=== PATIENT | female | born 2000 | race Caucasian/White ===

== ENCOUNTER 2019-01-24 20:05 | Emergency (ER) | payer BC ==
[2019-01-24 20:55] LABS: #Basophils 0.1 thou/uL (0.0-0.2); #Eosinphils 0.5 thou/uL (0.0-0.7); #Lymphocytes 1.4 thou/uL (1.20-3.40); #Monocytes 0.7 thou/uL (0.11-0.59); #Neutrophils 4.7 thou/uL (1.40-6.50); %Basophils 0.8 % (0.0-1.0); %Eosinophils 6.6 % (0.0-10.0); %Lymphocytes 18.9 % (28.0-48.0); %Monocytes 9.2 % (0.0-4.0); %Neutrophils 64.6 % (31.0-61.0); Hemoglobin 14.4 g/dL (12.0-16.0); Mean Corpuscular HGB CONC 33.6 g/dL (32.0-36.0); Mean Corpuscular Hemoglobin 30.8 pg (25.0-35.0); Mean Corpuscular Volume 91.6 fL (78.0-98.0); Mean Platelet Volume 7.8 fL (7.4-10.4); Platelet Count 242 thou/uL (130-400); RBC Distribution Width 11.3 % (11.5-14.5); Red Blood Cell (RBC) Count 4.68 mill/uL (4.00-5.20); White Blood Cell (WBC) Count 7.3 thou/uL (4.8-10.8)
[2019-01-24 21:04] LABS: Pregnancy Test - Urine (BHCG) Negative (Negative); Pregu Control Background? CLEAR/WHITE (CLR/WHITE); Pregu Control Bar Appear? YES (CONTROL BAR); Specific Gravity 1.011 (1.002-1.036)
--- NOTE | 2019-01-24 21:10 | RAD ---
TWO VIEWS CHEST: 01/24/19 HISTORY: Dyspnea. PA and lateral views of the chest is obtained on 01/24/19. Two views of the chest demonstrate the lungs to be well aerated. No evidence of active intrathoracic disease seen. No evidence of effusions, pneumonia, or pneumothorax seen. IMPRESSION: Unremarkable two views chest. POS: [id number]
[2019-01-24 21:22] LABS: ALT (SGPT) 15 U/L (8-55); AST (SGOT) 19 U/L (5-30); Albumin 4.5 g/dL (3.5-5.0); Alkaline Phosphatase 46 U/L (40-150); Anion Gap 14 mmol/L (10-20); BUN (Urea Nitrogen) 11 mg/dL (8.4-21.0); Bilirubin, Total 0.2 mg/dL (0.2-1.2); Calc. Creatinine Clearance 0 mL/min (70-130); Calcium 10.2 mg/dL (7.8-10.44); Carbon Dioxide 23 mmol/L (22-29); Estimated GFR-MDRD 83; Globulin 3.6 g/dL (2.4-3.5); Glucose 92 mg/dL (70-105); Protein, Total 8.1 g/dL (6.0-8.3)
[2019-01-24 21:45] LABS: Chloride 105 mmol/L (98-107); Sodium 138 mmol/L (136-145)
== END 2019-01-24 21:50 | disposition home or self-care (01) ==
LOC: ERS 20:05
DX: R07.89 Other chest pain (principal)
CPT/HCPCS: 71046; 80053; 81025; 84484; 85025; 85379; 93005

== ENCOUNTER 2021-07-26 09:26 | Outpatient (CLI) | payer BC | END 2021-07-26 09:27 | disposition home or self-care (01) | LOC: BICRAD 09:26 | PROVIDERS: ATTEND Student in an Organized Health Care Education/Training Program | DX: M54.41 Lumbago with sciatica, right side (principal); M47.816 Spondylosis without myelopathy or radiculopathy, lumbar region; M43.9 Deforming dorsopathy, unspecified | CPT/HCPCS: 72100 ==